=== PATIENT | female | born 1985 | race Caucasian/White ===

== ENCOUNTER 2018-12-29 20:56 | Emergency (ER) | payer BC ==
[~2018-12-29] VITALS: Ht 165.1 cm; Wt 49.9 kg
--- NOTE | 2018-12-29 21:30 | NUR ---
Pt. ambulated into ED w/ c/o allergic reaction on scalp after using hair dye yesterday, previously used benadryl which alleviated the symptoms but the redness and and itchiness has returned, A/Ox4, RR even and unlabored, denies SOB, speaks in complete sentences,
--- NOTE | 2018-12-29 21:44 | NUR ---
at bedside for MSE
--- NOTE | 2018-12-29 22:01 | NUR ---
Patient discharged to home in stable conditon. Written and verbal after care instructions given. Patient verbalizes understanding of instructions. Pt. d/c w/ prescription per MD order, d/c paper signed, all belongings w/ pt., ID band removed, ambulated off unit w/ steady gait, NAD
== END 2018-12-29 22:06 | disposition home or self-care (01) ==
LOC: ER 20:56
DX: T65.6X1A Toxic effect of paints and dyes, not elsewhere classified, accidental (unintentional), initial encounter (principal); L24.5 Irritant contact dermatitis due to other chemical products; Z88.8 Allergy status to other drugs, medicaments and biological substances; Y92.89 Other specified places as the place of occurrence of the external cause
CPT/HCPCS: A4663

== ENCOUNTER 2021-06-10 19:44 | Emergency (ER) | payer BC ==
[~2021-06-10] VITALS: Ht 165.1 cm; Wt 54.4 kg
[2021-06-10] MEDS ORDERED: TETRACAINE HCL 0.5% OPHT DROP 2 ML BOTTLE ONE (20:01)
[2021-06-10] MEDS ORDERED: FLUORESCEIN SODIUM 1 MG STRIP ONE (20:10)
[2021-06-10 20:17] VITALS: BP 122/72
--- NOTE | 2021-06-10 20:17 | NUR ---
Patient discharged to home in stable condition. Written and verbal after care instructions given. Patient verbalizes understanding of instructions. Stressed follow up or return to ER for worsening s/s.
[2021-06-10] MEDS ORDERED: FLUORESCEIN SODIUM 1 MG STRIP OP ONE (20:30)
[2021-06-10] MEDS ORDERED: TETRACAINE HCL 0.5% OPHT DROP 2 ML BOTTLE OP ONE (20:30)
== END 2021-06-10 20:27 | disposition home or self-care (01) ==
LOC: ER 19:46
DX: H57.12 Ocular pain, left eye (principal)
CPT/HCPCS: A4663

== ENCOUNTER 2023-07-31 22:29 | Emergency (ER) | payer BC ==
[~2023-07-31] VITALS: Ht 165.1 cm; Wt 54.4 kg
[2023-07-31] MEDS ORDERED: ACETAMINOPHEN ES 500 MG TABLET PO ONE (23:30)
[2023-07-31] MEDS ORDERED: CYCLOBENZAPRINE HCL 10 MG TABLET PO ONE (23:30)
[2023-07-31] MEDS ORDERED: ACETAMINOPHEN ES 500 MG TABLET ONE (23:31)
[2023-07-31] MEDS ORDERED: CYCLOBENZAPRINE HCL 10 MG TABLET ONE (23:31)
[2023-07-31] MEDS ORDERED: CYCL10TA9 PO (23:37)
[2023-07-31 23:45] VITALS: BP 102/66; TEMP 97.8; O2SAT 98
== END 2023-07-31 23:46 | disposition home or self-care (01) ==
LOC: ER 22:31
DX: S13.4XXA Sprain of ligaments of cervical spine, initial encounter (principal); Z88.1 Allergy status to other antibiotic agents; V89.2XXA Person injured in unspecified motor-vehicle accident, traffic, initial encounter; Y93.89 Activity, other specified; Y92.89 Other specified places as the place of occurrence of the external cause; Y99.8 Other external cause status
CPT/HCPCS: A4606; A4663; A9150